=== PATIENT | male | born 1980 | race Hispanic/Latino ===

== ENCOUNTER 2018-05-30 00:10 | Emergency (ER) | payer BC, OTHER ==
[2018-05-30] MEDS ORDERED: Ibuprofen 800 MG TAB ONE (00:40)
[2018-05-30] MEDS ORDERED: Acetaminophen 500 MG TAB ONE (00:41)
--- NOTE | 2018-05-30 08:36 | RAD ---
TWO VIEWS RIGHT FOREARM: DATE: 05/30/2018. PROVIDED CLINICAL HISTORY: Elbow pain. FINDINGS: There is no evidence for a fracture o other acute osseous abnormality. If there is persistent clinic al concern, conservative management and followup imaging are advised. IMPRESSION: As above. POS: OFF
--- NOTE | 2018-05-30 08:36 | RAD ---
RIGHT THUMB RADIOGRAPHS 3 VIEWS: Date: 05/30/18 PROVIDED CLINICAL HISTORY: Right thumb pain status post injury. FINDINGS: There is a mildly comminuted, not significantly displaced. Intraarticular fracture involving the base of the thumb metacarpal. No additional fracture is evident. Alignment appears anatomic. Joint spaces appear preserved. IMPRESSION: Comminuted intraarticular fracture involving the proximal thumb metacarpal. POS: OFF
== END 2018-05-30 00:50 ==
LOC: SCSER 00:10
DX: S62.511A Displaced fracture of proximal phalanx of right thumb, initial encounter for closed fracture (principal); Y04.0XXA Assault by unarmed brawl or fight, initial encounter
CPT/HCPCS: 29125